=== PATIENT | male | born 1995 | race Caucasian/White ===

== ENCOUNTER 2022-08-05 21:38 | Emergency (ER) | payer OTHER, SELFPAY ==
[2022-08-05 21:47] VITALS: BP 139/92; PULSE 120; RESP 20; TEMP 37.1; O2SAT 97; BMI 39.5
[2022-08-05] MEDS: ONDANSETRON ODT 4 MG TAB PO (22:29)
[2022-08-05] MEDS: NITROGLYCERIN 0.4 MG TAB.SUBL SUBLINGUAL (22:29)
--- NOTE | 2022-08-05 23:13 | ED_ITS ---
HPI - General Adult General Chief complaint: Difficulty Swallowing Stated complaint: Food stuck in throat, blood in vomit Time Seen by Provider: 08/05/22 21:59 History of Present Illness HPI narrative: 27-year-old man here with significant other with concern of food impaction in his esophagus. Was eating steak I believe. Has been unable to pass water. Has been vomiting. Significant other notes that he can have quite the gag reflex when eating. Often feels like things get hung up. Does have heartburn for which takes Tums. Does not seem like it is terrible heartburn though. Does have asthma. Question is posed as whether asthma might be contributing to this though I would wonder if reflux might be contributing to asthma. Related Data Allergies Allergy/AdvReac Type Severity Reaction Status Date / Time dairy Allergy Uncoded 08/05/22 21:46 Review of Systems Status of ROS: Reports: 6 or more systems reviewed and unremarkable except as noted in History and below PFSH PFSH Social History Smoking Status: Current every day smoker Do you use any of these nicotine containing products: Vaping Products Second hand tobacco smoke exposure: No How often do you have a drink containing alcohol: monthly or less How many standard drinks containing alcohol do you have on a typical day: 1 or 2 How often do you have six or more drinks on one occasion: Never AUDIT-C Alcohol total score: 1 Non-prescribed substance use: denies use service: No Exam Narrative: Exam Narrative: Pleasant. Rhinorrhea. Seems uncomfortable. Seated upright in the bed head/neck extended with waste basket for emesis in front of him. There is no stridor. Lungs appear to be clear, breathing easily but clearly uncomfortable Oropharynx is moist. Hyperemic. No foreign body appreciated. No asymmetry. Rather full in the posterior oropharynx. Intense gag reflex. Cardiovascular initially tachycardic. Regular rhythm Obese. Ward neck Moving all extremities without difficulty. Const: Vital Signs, click to edit/add: Vital Signs - 24 hr 08/05/22 21:47 08/05/22 23:15 Temperature 98.7 F Pulse Rate [Pulse Oximeter] 120 H 92 Respiratory Rate 20 16 Blood Pressure [Ri ght Upper Arm] 139/92 H 128/92 H Pulse Oximetry 97 98 Oxygen Delivery Me thod Room Air Room Air Documenting provider has reviewed patient's vital signs: yes Course Vital Signs Vital signs: Initial Vital Signs Temperature 98.7 F 08/05/22 21:47 Temperature Source Temporal Artery Scan 08/05/22 21:47 Pulse Rate 120 H 08/05/22 21:47 Pulse Rhythm 08/05/22 21:47 Respiratory Rate 20 08/05/22 21:47 Blood Pressure 139/92 H 08/05/22 21:47 Blood Pressure Mean 107 08/05/22 21:47 Blood Pressure Position Sitting 08/05/22 21:47 Pulse Oximetry 97 08/05/22 21:47 Oxygen Delivery Method 08/05/22 21:47 Vital Signs Temperature 98.7 F 08/05/22 21:47 Pulse Rate 120 H 08/05/22 21:47 Respiratory Rate 20 08/05/22 21:47 Blood Pressure 139/92 H 08/05/22 21:47 Pulse Oximetry 97 08/05/22 21:47 Oxygen Delivery Method 08/05/22 21:47 Temperature 98.7 F 08/05/22 21:47 Pulse Rate 92 08/05/22 23:15 Respiratory Rate 16 08/05/22 23:15 Blood Pressure 128/92 H 08/05/22 23:15 Pulse Oximetry 98 08/05/22 23:15 Oxygen Delivery Method 08/05/22 23:15 Medical Decision Making MDM Narrative Medical decision making narrative: Has been retching periodically. Ordered for Zofran ODT, though possibly limited effect, and sublingual nitro. This is to be followed with EZ gas. With this treatment happy to report that he felt passage of this food bolus and is able to tolerate liquids. Clearly more comfortable. Obesity, esophageal reflux complicating this presentation. Would encourage follow-up. Discharge Plan Discharge Clinical Impression: Impacted esophageal foreign body Patient Disposition: Home w/ Parent or Adult Condition: Improved Additional Instructions: Hydrate. Softer foods over the next 24-36 hours. Consider an appointment with ENT or possibly general surgery to maybe have a look-see (EGD) Follow Up/Referrals: Provider,Not a Local [Primary Care Provider] - Stand Alone [facility]: [facility] Inst[facility]
[2022-08-05 23:15] VITALS: BP 128/92; PULSE 92; RESP 16; O2SAT 98
== END 2022-08-05 23:24 | disposition home or self-care (01) ==
PROVIDERS: Emergency Provider Family Medicine
DX: T18.190A Other foreign object in esophagus causing compression of trachea, initial encounter (principal)
CPT/HCPCS: 99283; 99284; A9270